=== PATIENT | female | born 1995 | race African-American/Black ===

== ENCOUNTER 2023-10-21 15:30 | Emergency (ER) | payer OTHER, SELFPAY ==
--- NOTE | 2023-10-21 15:38 | ED.GENADUL1 ---
Documented by User: LOUISA Espino 10/21/23 21:04 HPI HPI - General Adult General Chief complaint: Abdominal Pain Stated complaint: ABDOMINAL PAIN, POSS BLOCKAGE PER DOC Time Seen by Provider: 10/21/23 15:38 History of Present Illness HPI narrative: Patient is a 27-year-old female who presents to the emergency department with concern for pancreatitis and possible bile duct obstruction. She went to [facility] 3 days ago, was diagnosed with pancreatitis with essentially equivocal findings on CT and was told that she could be admitted or treated as an outpatient, she was discharged home with antiemetics and pain medication. She states she was told that the pain was did not improve she needed to return to the ER. In the meantime she followed up with her GI specialist as an outpatient, she returned to the emergency department last night for increasing pain and was treated with pain medications, blood work was stable and she was discharged home. She followed up with her PCP yesterday who repeated an outpatient lipase, she states she was told the lipase was elevated and her PCP was concerned that she may have biliary obstruction. She denies fevers, vomiting or diarrhea. She is not concerned for . She has had no previous abdominal surgeries. She ate a banana and some strawberries several hours ago and states her pain increased after eating. Her pain is now located in the epigastrium and right upper quadrant. Related Data Home Medications ?Medication ?Instructions ?Recorded ?Confirmed albuterol 90 mcg/actuation aerosol mcg inhalation 10/21/23 inhaler fluticasone furoate 50 inhalation 10/21/23 mcg-vilanterol 25 mcg/dose inhalation powder (Breo Ellipta) hydrocodone 5 mg-acetaminophen 500 tab 10/21/23 mg tablet ondansetron 4 mg disintegrating 4 mg PO Q8H 10/21/23 10/21/23 tablet rimegepant 75 mg disintegrating mg 10/21/23 tablet [facility] Allergies Allergy/AdvReac Type Severity Reaction Status Date / Time aspirin AdvReac Mild Blood Verified 10/21/23 15:39 disorder Opioid HPI Opioid Management Most Recent Opioid Data: Last Pain Scale 6 10/21/23 16:57 Last ED Pain Assessment 10/21/23 16:57 Last MAR Pain Assessment 10/21/23 16:09 Review of Systems ROS Constitutional Denies: fever or chills Ears, nose, mouth, and throat Denies: throat pain or nasal congestion Respiratory Denies: shortness of breath Gastrointestinal Reports: abdominal pain and nausea; Denies: vomiting or diarrhea Musculoskeletal Denies: back pain or neck pain Integumentary/Breast Denies: rash Hematologic/Lymphatic Denies: easy bruising or easy bleeding Exam Narrative Exam Narrative: Gen.: Awake, alert, in no distress Head: Normocephalic, atraumatic ENT: Moist mucous membranes Respiratory: No respiratory distress, lungs clear bilaterally Cardio: Regular rate and rhythm Gastrointestinal: Abdomen is soft, nondistended and mildly tender in the right upper quadrant Extremities: Moves extremities equally Psych: Normal mood and affect Neuro: No focal neuro deficit Skin: Warm, dry, intact Constitutional Vital Signs, click to edit/add: Last Vital Signs Temp 98.3 F 10/21/23 15:40 Pulse 88 10/21/23 19:58 Resp 18 10/21/23 19:58 BP 138/96 H 10/21/23 19:58 Pulse Ox 97 10/21/23 19:58 O2 Del Method Room Air 10/21/23 16:04 Course Vital Signs Vital signs: Vital Signs Temperature 98.3 F 10/21/23 15:40 Pulse Rate 86 10/21/23 15:40 Respiratory Rate 18 10/21/23 15:40 Blood Pressure 134/90 10/21/23 15:40 Pulse Oximetry 100 10/21/23 15:40 Oxygen Delivery Method Room Air 10/21/23 15:40 Temperature 98.3 F 10/21/23 15:40 Pulse Rate 88 10/21/23 19:58 Respiratory Rate 18 10/21/23 19:58 Blood Pressure 138/96 H 10/21/23 19:58 Pulse Oximetry 97 10/21/23 19:58 Oxygen Delivery Method Room Air 10/21/23 16:04 Medical Decision Making MDM Narrative Medical decision making narrative: Patient treated with IV fluids, Dilaudid, Pepcid, Zofran. Pain is well-controlled in the emergency department. Laboratory studies reviewed and noted showing mildly elevated lipase with otherwise unremarkable LFTs and bilirubin. Right upper quadrant ultrasound shows no evidence of pancreatitis or gallstones, however there is a questionable 2 mm stone in the common bile duct. 1900: I discussed the case with Dr. Bauer, GI specialist at [facility] where the patient was seen twice earlier this week. Stated that a common bile duct stone in association with pancreatitis is an indication for an ERCP, however they do not do that procedure at their facility and she needs to be transferred to a higher level of care. Patient has seen a GI specialist (Dr. Garcia) associated with the [facility] and she prefers to be transferred there. Transfer initiated to [facility] at this time 1929: Medical hospitalist at [facility] transfer line accepted the patient for transfer but stated she did not require [facility] and we would receive a call from [facility] or [facility] where they have ERCP capabilities to accommodate the patient. 2049: Dr. Gonzalez accepted the patient as a GI consult to [facility]. 2099: We are awaiting hospitalist acceptance at [facility], at this time the patient is hemodynamically stable with normal vital signs. Pain is well-controlled. Case is turned over to attending physician at this time to discuss the case with [facility] and disposition. Critical care time 35 minutes Medical Records Medical records reviewed: Yes I reviewed the patient's medical records Lab Data Lab results reviewed: Yes I reviewed the patient's lab results Labs: Lab Results 10/21/23 10/21/23 Range/Units 16:00 16:05 WBC 6.9 (4.0-11.0) 10^3/uL RBC 4.36 (4.20-5.40) 10^6/uL Hgb 12.7 (12.0-16.0) g/dL Hct 37.9 (36.0-48.0) % MCV 86.9 (81.0-99.0) fL MCH 29.1 (26.7-34.0) pg MCHC 33.5 (29.9-35.2) g/dL RDW 12.5 (11.0-15.0) % Plt Count 344 (150-450) 10^3/uL MPV 9.1 L (9.5-13.5) fL Neut % (Auto) 61.7 (43.0-75.0) % Lymph % (Auto) 30.1 (20.5-60.0) % [place] % (Auto) 7.1 (1.7-12.0) % Eos % (Auto) 0.7 L (0.9-7.0) % Baso % (Auto) 0.3 (0.2-2.0) % Neut # (Auto) 4.3 (1.4-6.5) 10^3/uL Lymph # (Auto) 2.1 (1.2-3.8) 10^3/uL [place] # (Auto) 0.5 (0.3-0.8) 10^3/uL Eos # (Auto) 0.1 (0.0-0.7) 10^3/uL Baso # (Auto) 0.0 (0.0-0.1) 10^3/uL Abs Immat Gran (auto) 0.01 (0.00-0.03) 10^3/uL Imm/Tot Granulo (auto) 0.1 (0.0-0.5) % PT 10.6 (9.0-11.6) sec INR 1.00 Sodium 138 (136-145) mmol/L Potassium 4.4 (3.5-5.1) mmol/L Chloride 104 (98-107) mmol/L Carbon Dioxide 25.0 (21.0-32.0) mmol/L Anion Gap 13.4 BUN 6.0 L (7.0-18.0) mg/dL Creatinine 0.70 (0.55-1.02) mg/dL Est GFR ( Amer) >60 (>=60) Est GFR (Non-Af Amer) >60 (>=60) BUN/Creatinine Ratio 8.6 Glucose 104 (74-106) mg/dL Calcium 9.2 (8.5-10.1) mg/dL Total Bilirubin 0.3 (0.2-1.0) mg/dL Direct Bilirubin <0.1 (0.0-0.2) mg/dL AST 26 (15-37) U/L ALT 21 (14-59) U/L Alkaline Phosphatase 78 (46-116) U/L Total Protein 7.3 (6.4-8.2) g/dL Albumin 3.6 (3.4-5.0) g/dL Globulin 3.7 g/dL Albumin/Globulin Ratio 1.0 Amylase 111 (25-115) U/L Lipase 216.0 H (16.0-77.0) U/L Serum HCG, Qual Negative (NEGATIVE) Urine Color Lt. yellow (YELLOW) Urine Clarity Clear (CLEAR) Urine pH 8.0 (5.0-9.0) Ur Specific Commerce 1.020 (1.005-1.025) Urine Protein Negative (NEG/TRACE) mg/dL Urine Glucose (UA) Negative (NEGATIVE) mg/dL Urine Ketones Negative (NEGATIVE) mg/dL Urine Occult Blood Moderate A (NEGATIVE) Urine Nitrite Negative (NEGATIVE) Urine Bilirubin Negative (NEGATIVE) Urine Urobilinogen 0.2 (0.2-1.0) EU/dL Ur Leukocyte Esterase Negative (NEGATIVE) Urine RBC 2-5 A (0-2) #/HPF Urine WBC None seen (NONE SEEN) #/HPF Ur Squamous Epith Cells Rare (NONE/RARE) #/LPF Urine Crystals None seen (None Seen) #/HPF Urine Bacteria None seen (NONE SEEN) #/HPF Urine Casts None seen (NONE SEEN) #/LPF Urine Mucus None seen (NONE SEEN) Ur Culture Indicated? No Imaging Data US - abdomen: Attestation: I have reviewed the pertinent imaging results. Radiologist's impression: ITS Impressions Upper Quadrant Ultrasound 10/21/23 15:53 IMPRESSION: The visualized portions of the pancreas are unremarkable and no pancreatic ductal dilatation seen. However given particular concern for pancreatitis, CT is the optimal modality for diagnosis and for visualization of peripancreatic stranding. Correlation with lipase is also central to the diagnosis. No sonographic evidence of cholelithiasis, acute cholecystitis, or biliary ductal dilatation. There is question of a tiny 2 mm echogenic common duct stone, however biliary ductal dilatation may be expected which is not seen, and the tiny echogenic focus may simply be the wall of the duct. Electronically authenticated by: BHUPINDER WATKINS Date: 10/21/2023 18:35 Critical Care Time Critical Care Time Critical Care Time: Yes Total Critical Care Time: 35 Attestation: 35 minutes of critical care time for evaluation of the patient, multiple phone calls to different providers and specialists as well as transfer to tertiary care facility for higher level of care. Discharge Plan Discharge Chief Complaint: Abdominal Pain Clinical Impression: Acute pancreatitis, Common bile duct stone Patient Disposition: [facility] Time of Disposition Decision: 21:03 Discharge location: [facility] Condition: Good Mode of Transportation: EMS Documented by User: Cheikh Stewart MD 10/21/23 21:15 HPI HPI - General Adult General Chief complaint: Abdominal Pain Stated complaint: ABDOMINAL PAIN, POSS BLOCKAGE PER DOC Time Seen by Provider: 10/21/23 15:38 Related Data Home Medications ?Medication ?Instructions ?Recorded ?Confirmed albuterol 90 mcg/actuation aerosol mcg inhalation 10/21/23 inhaler fluticasone furoate 50 inhalation 10/21/23 mcg-vilanterol 25 mcg/dose inhalation powder (Breo Ellipta) hydrocodone 5 mg-acetaminophen 500 tab 10/21/23 mg tablet ondansetron 4 mg disintegrating 4 mg PO Q8H 10/21/23 10/21/23 tablet rimegepant 75 mg disintegrating mg 10/21/23 tablet (Nurtec ODT) Allergies Allergy/AdvReac Type Severity Reaction Status Date / Time aspirin AdvReac Mild Blood Verified 10/21/23 15:39 disorder Opioid HPI Opioid Management Most Recent Opioid Data: Last Pain Scale 6 10/21/23 16:57 Last ED Pain Assessment 10/21/23 16:57 Last MAR Pain Assessment 10/21/23 16:09 Exam Constitutional Vital Signs, click to edit/add: Last Vital Signs Temp 98.3 F 10/21/23 15:40 Pulse 88 10/21/23 19:58 Resp 18 10/21/23 19:58 BP 138/96 H 10/21/23 19:58 Pulse Ox 97 10/21/23 19:58 O2 Del Method Room Air 10/21/23 16:04 Course Vital Signs Vital signs: Vital Signs Temperature 98.3 F 10/21/23 15:40 Pulse Rate 86 10/21/23 15:40 Respiratory Rate 18 10/21/23 15:40 Blood Pressure 134/90 10/21/23 15:40 Pulse Oximetry 100 10/21/23 15:40 Oxygen Delivery Method Room Air 10/21/23 15:40 Temperature 98.3 F 10/21/23 15:40 Pulse Rate 88 10/21/23 19:58 Respiratory Rate 18 10/21/23 19:58 Blood Pressure 138/96 H 10/21/23 19:58 Pulse Oximetry 97 10/21/23 19:58 Oxygen Delivery Method Room Air 10/21/23 16:04 Medical Decision Making MDM Narrative Medical decision making narrative: Patient treated with IV fluids, Dilaudid, Pepcid, Zofran. Pain is well-controlled in the emergency department. Laboratory studies reviewed and noted showing mildly elevated lipase with otherwise unremarkable LFTs and bilirubin. Right upper quadrant ultrasound shows no evidence of pancreatitis or gallstones, however there is a questionable 2 mm stone in the common bile duct. 1899: I discussed the case with Dr. Bauer, GI specialist at [facility] where the patient was seen twice earlier this week. Stated that a common bile duct stone in association with pancreatitis is an indication for an ERCP, however they do not do that procedure at their facility and she needs to be transferred to a higher level of care. Patient has seen a GI specialist (Dr. Garcia) associated with the [facility] and she prefers to be transferred there. Transfer initiated to [facility] at this time 0: Medical hospitalist at [facility] transfer line accepted the patient for transfer but stated she did not require [facility] and we would receive a call from [facility] or [facility] where they have ERCP capabilities to accommodate the patient. 2049: Dr. Gonzalez accepted the patient as a GI consult to [facility]. 2100: We are awaiting hospitalist acceptance at [facility], at this time the patient is hemodynamically stable with normal vital signs. Pain is well-controlled. Case is turned over to attending physician at this time to discuss the case with [facility] and disposition. Critical care time 35 minutes JK 9:15pm I have spoken to the hospitalist at [facility] who accepts the patient. She is stable for transfer. Differential Diagnosis Differential Diagnosis: Pancreatitis, acute cholecystitis, nonspecific abdominal pain, hepatitis Lab Data Lab results reviewed: Yes I reviewed the patient's lab results Labs: Lab Results 10/21/23 10/21/23 Range/Units 16:00 16:05 WBC 6.9 (4.0-11.0) 10^3/uL RBC 4.36 (4.20-5.40) 10^6/uL Hgb 12.7 (12.0-16.0) g/dL Hct 37.9 (36.0-48.0) % MCV 86.9 (81.0-99.0) fL MCH 29.1 (26.7-34.0) pg MCHC 33.5 (29.9-35.2) g/dL RDW 12.5 (11.0-15.0) % Plt Count 344 (150-450) 10^3/uL MPV 9.1 L (9.5-13.5) fL Neut % (Auto) 61.7 (43.0-75.0) % Lymph % (Auto) 30.1 (20.5-60.0) % [place] % (Auto) 7.1 (1.7-12.0) % Eos % (Auto) 0.7 L (0.9-7.0) % Baso % (Auto) 0.3 (0.2-2.0) % Neut # (Auto) 4.3 (1.4-6.5) 10^3/uL Lymph # (Auto) 2.1 (1.2-3.8) 10^3/uL [place] # (Auto) 0.5 (0.3-0.8) 10^3/uL Eos # (Auto) 0.1 (0.0-0.7) 10^3/uL Baso # (Auto) 0.0 (0.0-0.1) 10^3/uL Abs Immat Gran (auto) 0.01 (0.00-0.03) 10^3/uL Imm/Tot Granulo (auto) 0.1 (0.0-0.5) % PT 10.6 (9.0-11.6) sec INR 1.00 Sodium 138 (136-145) mmol/L Potassium 4.4 (3.5-5.1) mmol/L Chloride 104 (98-107) mmol/L Carbon Dioxide 25.0 (21.0-32.0) mmol/L Anion Gap 13.4 BUN 6.0 L (7.0-18.0) mg/dL Creatinine 0.70 (0.55-1.02) mg/dL Est GFR ( Amer) >60 (>=60) Est GFR (Non-Af Amer) >60 (>=60) BUN/Creatinine Ratio 8.6 Glucose 104 (74-106) mg/dL Calcium 9.2 (8.5-10.1) mg/dL Total Bilirubin 0.3 (0.2-1.0) mg/dL Direct Bilirubin <0.1 (0.0-0.2) mg/dL AST 26 (15-37) U/L ALT 21 (14-59) U/L Alkaline Phosphatase 78 (46-116) U/L Total Protein 7.3 (6.4-8.2) g/dL Albumin 3.6 (3.4-5.0) g/dL Globulin 3.7 g/dL Albumin/Globulin Ratio 1.0 Amylase 111 (25-115) U/L Lipase 216.0 H (16.0-77.0) U/L Serum HCG, Qual Negative (NEGATIVE) Urine Color Lt. yellow (YELLOW) Urine Clarity Clear (CLEAR) Urine pH 8.0 (5.0-9.0) Ur Specific Commerce 1.020 (1.005-1.025) Urine Protein Negative (NEG/TRACE) mg/dL Urine Glucose (UA) Negative (NEGATIVE) mg/dL Urine Ketones Negative (NEGATIVE) mg/dL Urine Occult Blood Moderate A (NEGATIVE) Urine Nitrite Negative (NEGATIVE) Urine Bilirubin Negative (NEGATIVE) Urine Urobilinogen 0.2 (0.2-1.0) EU/dL Ur Leukocyte Esterase Negative (NEGATIVE) Urine RBC 2-5 A (0-2) #/HPF Urine WBC None seen (NONE SEEN) #/HPF Ur Squamous Epith Cells Rare (NONE/RARE) #/LPF Urine Crystals None seen (None Seen) #/HPF Urine Bacteria None seen (NONE SEEN) #/HPF Urine Casts None seen (NONE SEEN) #/LPF Urine Mucus None seen (NONE SEEN) Ur Culture Indicated? No Imaging Data US - abdomen: Radiologist's impression: ITS Impressions Upper Quadrant Ultrasound 10/21/23 15:53 IMPRESSION: The visualized portions of the pancreas are unremarkable and no pancreatic ductal dilatation seen. However given particular concern for pancreatitis, CT is the optimal modality for diagnosis and for visualization of peripancreatic stranding. Correlation with lipase is also central to the diagnosis. No sonographic evidence of cholelithiasis, acute cholecystitis, or biliary ductal dilatation. There is question of a tiny 2 mm echogenic common duct stone, however biliary ductal dilatation may be expected which is not seen, and the tiny echogenic focus may simply be the wall of the duct. Electronically authenticated by: BHUPINDER WATKINS Date: 10/21/2023 18:35 Discharge Plan Discharge Chief Complaint: Abdominal Pain Clinical Impression: Acute pancreatitis, Common bile duct stone Patient Disposition: [facility] Time of Disposition Decision: 21:03 Discharge location: [facility] Condition: Good Mode of Transportation: EMS
[2023-10-21 15:40] VITALS: BP 134/90; PULSE 86; TEMP 36.8; O2SAT 100; BMI 24.1
--- NOTE | 2023-10-21 15:53 | US_ITS ---
The [address] [address] Patient Name: TUCKER MCCARTHY MRN: [id number] date: 1995 Sex: F Assigned Patient Location: ER Current Patient Location: ER Accession/Order Number: [id number] Exam Date: 10/21/2023 16:53 Report Date: 10/21/2023 18:35 At the request of: MARCELINO MEZA Procedure: US right upper quadrant EXAM: US right upper quadrant HISTORY: Right upper quadrant pain. COMPARISON: None available. TECHNIQUE: Real-time ultrasonography of the right upper quadrant was performed. FINDINGS: Liver: Normal echogenicity. No focal hepatic lesions. Gallbladder: No cholelithiasis. No significant gallbladder wall thickening. No pericholecystic fluid. Negative Layton sign. Bile ducts: There is no intrahepatic or extrahepatic biliary ductal dilation. The common bile duct is within normal limits measuring up to 3.2 mm. There is question of a tiny 2 mm echogenic common duct stone, however biliary ductal dilatation may be expected which is not seen, and the tiny echogenic focus may simply be the wall of the duct. Portal vein: The portal vein is patent and demonstrates normal hepatopetal blood flow. Right kidney: The right kidney measures 9.0 cm in length. No hydronephrosis, sonographic evidence of urolithiasis, or focal mass. The visualized portions of the pancreas are unremarkable. No pancreatic ductal dilatation seen. However given particular concern for pancreatitis, CT is the optimal modality for diagnosis and for visualization of peripancreatic stranding. Correlation with lipase is also central to the diagnosis. No right upper quadrant ascites. US/US right upper quadrant IMPRESSION: The visualized portions of the pancreas are unremarkable and no pancreatic ductal dilatation seen. However given particular concern for pancreatitis, CT is the optimal modality for diagnosis and for visualization of peripancreatic stranding. Correlation with lipase is also central to the diagnosis. No sonographic evidence of cholelithiasis, acute cholecystitis, or biliary ductal dilatation. There is question of a tiny 2 mm echogenic common duct stone, however biliary ductal dilatation may be expected which is not seen, and the tiny echogenic focus may simply be the wall of the duct. Electronically authenticated by: BHUPINDER WATKINS Date: 10/21/2023 18:35
[2023-10-21 16:04] VITALS: O2SAT 99
[2023-10-21] MEDS: FAMOTIDINE/PF 20 MG/2 ML VIAL IV (16:08)
[2023-10-21] MEDS: ONDANSETRON PF 4 MG/2 ML VIAL IV (16:08)
[2023-10-21] MEDS: 0.9 % SODIUM CHLORIDE 1,000 ML 999 ML IV (16:08)
[2023-10-21] MEDS: HYDROMORPHONE HCL 0.5 MG/0.5 ML SYRINGE IVP (16:09)
[2023-10-21 16:23] LABS: Basophils Percent Auto 0.3 % (0.2-2.0); Eosinophils Absolute Auto 0.1 10^3/uL (0.0-0.7); Eosinophils Percent Auto 0.7 % (0.9-7.0); Hematocrit 37.9 % (36.0-48.0); Hemoglobin 12.7 g/dL (12.0-16.0); Immature Granulocytes Abs Auto 0.01 10^3/uL (0.00-0.03); Immature Granulocytes Pct Auto 0.1 % (0.0-0.5); Lymphocytes Absolute Auto 2.1 10^3/uL (1.2-3.8); Lymphocytes Percent Auto 30.1 % (20.5-60.0); Mean Corpuscular HGB Conc 33.5 g/dL (29.9-35.2); Mean Corpuscular Hemoglobin 29.1 pg (26.7-34.0); Mean Corpuscular Volume 86.9 fL (81.0-99.0); Mean Platelet Volume 9.1 fL (9.5-13.5); Monocytes Absolute Auto 0.5 10^3/uL (0.3-0.8); Monocytes Percent Auto 7.1 % (1.7-12.0); Neutrophils Absolute Auto 4.3 10^3/uL (1.4-6.5); Neutrophils Percent Auto 61.7 % (43.0-75.0); Platelet Count 344 10^3/uL (150-450); Red Blood Count 4.36 10^6/uL (4.20-5.40); Red Cell Distribution Width 12.5 % (11.0-15.0); White Blood Count 6.9 10^3/uL (4.0-11.0)
[2023-10-21 16:23] LABS: Bilirubin Urine NEGATIVE (NEGATIVE); Blood Urine MODERATE (NEGATIVE); Clarity Urine CLEAR (CLEAR); Color Urine LT. YELLOW (YELLOW); Glucose Urine UA NEGATIVE (NEGATIVE); Ketones Urine NEGATIVE (NEGATIVE); Leukocyte Esterase Urine NEGATIVE (NEGATIVE); Nitrite Urine NEGATIVE (NEGATIVE); Protein Urine NEGATIVE (NEG/TRACE); Urobilinogen Urine 0.2 EU/dL (0.2-1.0)
[2023-10-21 16:29] LABS: Urine Microscopic Indicated YES
[2023-10-21 16:34] LABS: Amylase 111 U/L (25-115); HCG Qualitative NEGATIVE (NEGATIVE); Internal Control Within Normal Limits
[2023-10-21 16:35] LABS: Bacteria Urine NONE SEEN #/HPF (NONE SEEN); Cast Seen? NONE SEEN #/LPF (NONE SEEN); Crystals Seen? None Seen #/HPF (None Seen); Mucus Urine NONE SEEN (NONE SEEN); Squamous Epithelial Cell Urine RARE #/LPF (NONE/RARE); Urine Culture Indicated NO; WBC Urine NONE SEEN #/HPF (NONE SEEN)
[2023-10-21 16:36] LABS: Bilirubin Direct <0.1 mg/dL (0.0-0.2)
[2023-10-21 16:37] LABS: Prothrombin Time 10.6 sec (9.0-11.6)
[2023-10-21 16:48] LABS: Alanine Aminotransferase 21 U/L (14-59); Albumin Level 3.6 g/dL (3.4-5.0); Alkaline Phosphatase 78 U/L (46-116); Anion Gap 13.4; Aspartate Amino Transferase 26 U/L (15-37); BUN Creatinine Ratio 8.6; Bilirubin Total 0.3 mg/dL (0.2-1.0); Calcium 9.2 mg/dL (8.5-10.1); Chloride 104 mmol/L (98-107); Estimated GFR (African America >60 (>=60); Estimated GFR (Non-African Ame >60 (>=60); Globulin 3.7 g/dL; Glucose 104 mg/dL (74-106); Potassium 4.4 mmol/L (3.5-5.1); Sodium 138 mmol/L (136-145); Total Protein 7.3 g/dL (6.4-8.2)
[2023-10-21 19:58] VITALS: BP 138/96; PULSE 88; O2SAT 97
[2023-10-21] MEDS: HYDROMORPHONE HCL 0.5 MG/0.5 ML SYRINGE IV (21:27)
[2023-10-21 21:36] VITALS: BP 130/78; PULSE 87; O2SAT 99
[2023-10-21 21:54] VITALS: BP 129/83; PULSE 80; O2SAT 98
== END 2023-10-21 21:54 | disposition left against medical advice (07) ==
PROVIDERS: Physician Assistant; Emergency Provider Emergency Medicine; PCP Nurse Practitioner Family
DX: K85.90 Acute pancreatitis without necrosis or infection, unspecified (principal); K80.50 Calculus of bile duct without cholangitis or cholecystitis without obstruction; Z53.29 Procedure and treatment not carried out because of patient's decision for other reasons
CPT/HCPCS: 36415; 76705; 80053; 81001; 82150; 82248; 83690; 84703; 85025; 85610; 96374; 96375; 96376; 99285; J1170; J2405